=== PATIENT | male | born 1975 | race Hispanic/Latino ===

== ENCOUNTER 2017-10-04 11:28 | Emergency (ER) | payer SELFPAY ==
[~2017-10-04] VITALS: Ht 165.1 cm; Wt 95.3 kg
[2017-10-04 12:01] LABS: BASOPHILS # (AUTO) 0.1 (0.0-0.1); BASOPHILS % 0.6 % (0.0-1.0); EOSINOPHILS # (AUTO) 0.2 (0.0-0.4); HEMATOCRIT 46.1 % (38.2-49.6); HEMOGLOBIN 16.5 g/dL (14.0-18.0); LYMPHOCYTES # (AUTO) 2.7 (1.0-3.2); LYMPHOCYTES % 28.4 % (18.0-39.1); MEAN CORPUSCULAR HEMOGLOBIN 29.4 pg (28-32); MEAN CORPUSCULAR HGB CONC 35.8 g/dL (31-35); MONOCYTES # (AUTO) 0.6 (0.2-0.8); MONOCYTES % 6.3 % (4.4-11.3); NEUTROPHILS # (AUTO) 5.8 (2.1-6.9); NEUTROPHILS % 62.2 % (38.7-80.0); PLATELET COUNT 351 x10e3/uL (140-360); RED BLOOD COUNT 5.62 x10e6/uL (4.3-5.7); RED CELL DISTRIBUTION WIDTH 12.3 % (11.7-14.4)
[2017-10-04] MEDS ORDERED: LABETALOL HCL 5 MG/ML 20ML VIAL IV STA (12:08)
[2017-10-04] MEDS ORDERED: HYDROMORPHONE 1MG/1ML INJ IV STA (12:08)
[2017-10-04] MEDS ORDERED: ONDANSETRON HCL 4 MG ORAL DISINTEGRATING TAB PO ONE ×2 (12:15→13:45)
[2017-10-04 12:20] LABS: INR 0.95; PROTHROMBIN TIME 11.9 seconds (11.9-14.5)
[2017-10-04 12:21] LABS: PARTIAL THROMBOPLASTIN TIME 24.7 seconds (23.8-35.5)
[2017-10-04 12:24] LABS: ALANINE AMINOTRANSFERASE 18 IU/L (0-55); ALBUMIN/GLOBULIN RATIO 0.9 (0.8-2.0); ALKALINE PHOSPHATASE 66 IU/L (40-150); ANION GAP 17.6 mmol/L (8-16); BLOOD UREA NITROGEN 15 mg/dL (7-26); BUN/CREATININE RATIO 13 (6-25); CALCIUM 10.4 mg/dL (8.4-10.2); CARBON DIOXIDE 27 mmol/L (22-29); CHLORIDE 95 mmol/L (98-107); EST GLOMERULAR FILTRATION RATE > 60 ML/MIN (60-); POTASSIUM 3.6 mmol/L (3.5-5.1); SODIUM 136 mmol/L (136-145)
[2017-10-04 12:26] LABS: CREATINE KINASE 55 IU/L (30-200)
[2017-10-04 12:27] LABS: GLUCOSE 430 mg/dL (74-118)
[2017-10-04] MEDS ORDERED: HYDROMORPHONE 2MG/ML INJ IV ONE (12:30)
[2017-10-04] MEDS ORDERED: HYDROMORPHONE 2MG/ML INJ IV NR (12:30)
[2017-10-04 12:50] LABS: CLARITY,URINE CLEAR (CLEAR); COLOR,URINE YELLOW (YELLOW); LEUKOCYTE ESTERASE ,URINE NEGATIVE (NEGATIVE); NITRITE,URINE NEGATIVE (NEGATIVE); PROTEIN,URINE DIPSTICK 1+ (NEGATIVE)
[2017-10-04 12:51] LABS: BACTERIA,URINE RARE /HPF; BILIRUBIN,URINE NEGATIVE (NEGATIVE); EPITHELIAL CELLS,URINE RARE /LPF; KETONES,URINE NEGATIVE (NEGATIVE); RBC,URINE 0-5 /HPF (0-5); URINE UROBILINOGEN 0.2 mg/dL (0.2 - 1); WBC,URINE (MAN) 0-5 /HPF (0-5)
--- NOTE | 2017-10-04 13:08 | Diagnostic Imaging Report ---
PROCEDURE: A single AP view of the chest. COMPARISON: None. INDICATIONS: RIGHT FLANK PAIN RADIATING TO RIGHT SIDE ABDOMEN FINDINGS: Lines/tubes: None. Lungs: Low lung volumes. There is no evidence of pneumonia or pulmonary edema. Pleura: There is no pleural effusion or pneumothorax. Heart and mediastinum: The heart and the mediastinum are unremarkable. Bones: No acute bony abnormality. IMPRESSION: 1. No acute cardiopulmonary disease. Dictated by: Adalberto Crowder M.D. on 10/04/2017 at 13:11 Electronically approved by: Adalberto Crowder M.D. on 10/04/2017 at 13:11
--- NOTE | 2017-10-04 13:54 | Diagnostic Imaging Report ---
EXAM: CTA Abdomen and Pelvis WITH AND WITHOUT CONTRAST. DATE: 10/04/2017 12:10 PM INDICATION: COMPARISON: None TECHNIQUE: CT angiogram of the abdomen and pelvis was obtained before and after the administration of IV contrast. Prospective gating was performed. Images reviewed in the axial, coronal, and sagittal planes. 3D reconstructions performed on off-line workstation. IV Contrast: 100 mL Isovue-370. Total DLP: 1346 mGy*cm Est. Eff. Dose DLP x 0.015 x size factor mSv (CTDIvol has been reviewed and is below limits set by [facility]). FINDINGS: VASCULAR: Abdominal Aorta Mesenteric Segment: 19 mm. Abdominal Aorta Just Below Renal Arteries: 17 mm. Mid Infrarenal Abdominal Aorta: 16 mm. Abdominal Aortal at Bifurcation: 14 mm. Mesenteric Arteries: Widely patent. No significant atherosclerotic changes. Other: No significant atherosclerotic change, mural plaque, or dissection. RCIA: 10 mm. LCIA: 11 mm. Internal Iliac Arteries: Widely patent. Abdomen: Lung Bases: No acute findings. Solid Organs: Liver, adrenals, kidneys, spleen, and pancreas unremarkable. Upper GI Tract: No small bowel obstructive changes. Lymph Nodes: No suspicious adenopathy by size criteria. Other: None. Pelvis: Bladder: Unremarkable. Other: None. Colon: No acute colonic findings. Appendix not inflamed. Bones: Mild degenerative changes. IMPRESSION: 1. No aortic aneurysm or dissection. Signed by: Dr. Paulie Welsh MD on 10/04/2017 1:50 PM
[2017-10-04 13:57] LABS: AMPHETAMINES SCREEN,URINE NEGATIVE (NEGATIVE); BENZODIAZEPINES SCREEN,URINE NEGATIVE (NEGATIVE); PHENCYCLIDINE SCREEN,URINE NEGATIVE (NEGATIVE)
[2017-10-04] MEDS ORDERED: JANUVIA100 MG PO (13:57)
[2017-10-04] MEDS ORDERED: METFORMIN HCL500 MG PO (14:00)
[2017-10-04] MEDS ORDERED: GLYBURIDE5 MG PO (14:00)
[2017-10-04] MEDS ORDERED: LISINOPRIL-HCT1 EAC1 PO (14:00)
[2017-10-04] MEDS ORDERED: SIMVASTATIN40 MG PO (14:00)
[2017-10-04] MEDS ORDERED: INSULIN LISPRO 100 UNIT/1 ML 3ML VIAL SQ STA (14:17)
[2017-10-04] MEDS ORDERED: IOPAMIDOL 370 MG/ML 200 ML INFUS..BTL INJ ONE (15:22)
[2017-10-04] MEDS ORDERED: SODIUM CHLORIDE 0.9% 100 ML ONE (15:22)
[2017-10-04 15:25] VITALS: BP 132/85
== END 2017-10-04 15:45 | disposition home or self-care (01) ==
LOC: ER 11:31
DX: R10.11 Right upper quadrant pain (principal); R10.31 Right lower quadrant pain; I10 Essential (primary) hypertension
CPT/HCPCS: 36415; 71045; 74174; 80053; 80307; 81001; 82550; 82553; 83880; 84484; 85025; 85379; 85610; 85730; 93005; 99284; J1170; J3490; J7050; Q9967

== ENCOUNTER 2019-06-18 08:54 | Emergency (ER) | payer SELFPAY ==
[~2019-06-18] VITALS: Ht 165.1 cm; Wt 95.3 kg
[~2019-06-18 08:54] MED LIST: GLYBURIDE5 MG PO; JANUVIA100 MG PO; LISINOPRIL-HCT1 EAC1 PO; METFORMIN HCL500 MG PO; SIMVASTATIN40 MG PO
--- OUTSIDE RECORDS SUMMARY | 2019-06-18 08:57 | XMS REPORT ---
Author Author [facility] Address Unknown Phone Unavailable Care Team Providers Care Billet Examiner Name Role Phone Perlita COPE Unavailable Unavailable Problems This patient has no known problems. Allergies, Adverse Reactions, Alerts This patient has no known allergies or adverse reactions. Medications This patient has no known medications. Results Test Description Test Time Test Comments Text Results Atomic Results Result Comments CTA ABD/PELVIS [place] [address] Patient Name: KIKI BLUNT MR #: [id number] : 1975 Age/Sex: 41/M Req #: [id number] Adm Physician: Ordered by: LINDSAY COPE MD Report #: [id number] Location: ER Room/Bed: Procedure: [id number] CT/CTA ABD/PELVIS Exam Date: 10/04/17 Exam Time: 1315 REPORT STATUS: Signed EXAM: CTA Abdomen and Pelvis WITH AND WITHOUT CONTRAST. DATE: 10/04/2017 12:10 PM INDICATION: COMPARISON: None TECHNIQUE: CT angiogram of the abdomen and pelvis was obtained before and after the administration of IV contrast. Prospective gating was performed. Images reviewed in the axial, coronal, and sagittal planes. 3D reconstructions performed on off-line workstation. IV Contrast: 100 mL Isovue-370. Total DLP: 1346 mGy*cm Est. Eff. Dose DLP x 0.015 x size factor mSv (CTDIvol has been reviewed and is below limits set by [facility]). FINDINGS: VASCULAR: Abdominal Aorta Mesenteric Segment: 19 mm. Abdominal Aorta Just Below Renal Arteries: 17 mm. Mid Infrarenal Abdominal Aorta: 16 mm. Abdominal Aortal at Bifurcation: 14 mm. Mesenteric Arteries: Widely patent. No significant atherosclerotic changes. Other: No significant atherosclerotic change, mural plaque, or dissection. RCIA: 10 mm. LCIA: 11 mm. Internal Iliac Arteries: Widely patent. Abdomen: Lung Bases: No acute findings. Solid Organs: Liver, adrenals, kidneys, spleen, and pancreas unremarkable. Upper GI Tract: No small bowel obstructive changes. Lymph Nodes: No suspicious adenopathy by size criteria. Other: None. Pelvis: Bladder: Unremarkable. Other: None. Colon: No acute colonic findings. Appendix not inflamed. Bones: Mild degenerative changes. IMPRESSION: 1. No aortic aneurysm or dissection. Signed by: Dr. Paulie Welsh MD on 10/04/2017 1:50 PM Dictated By: PAULIE WELSH MD 1350 Transcribed By: CAMACHO on 10/04/17 1350 COPY TO: LINDSAY COPE MD CHEST SINGLE (PORTABLE) [place] [address] Patient Name: KIKI BLUNT MR #: [id number] : 1975 Age/Sex: 41/M Req #: [id number] Adm Physician: Ordered by: LINDSAY COPE MD Report #: [id number] Location: ER Room/Bed: Procedure: [id number] DX/CHEST SINGLE (PORTABLE) Exam Date: 10/04/17 Exam Time: 1235 REPORT STATUS: Signed PROCEDURE: A single AP view of the chest. COMPARISON: None. INDICATIONS: RIGHT FLANK PAIN RADIATING TO RIGHT SIDE ABDOMEN FINDINGS: Lines/tubes: None. Lungs: Low lung volumes. There is no evidence of pneumonia or pulmonary edema. Pleura: There is no pleural effusion or pneumothorax. Heart and mediastinum: The heart and the mediastinum are unremarkable. Bones: No acute bony abnormality. IMPRESSION: 1. No acute cardiopulmonary disease. Dictated by: Adalberto Stewart M.D. on 10/04/2017 at 13:11 Electronically approved by: Adalberto Stewart M.D. on 10/04/2017 at 13:11 Dictated By: ADALBERTO STEWART MD 1311 Transcribed By: PIETER on 10/04/17 1311 COPY TO: LINDSAY COPE MD
[2019-06-18] MEDS ORDERED: ONDANSETRON HCL INJ 2MG/ML 2ML 2 MG/ML VIAL IV ONE (09:15)
[2019-06-18] MEDS ORDERED: KETOROLAC TROMETHAMINE 30 MG/ML VIAL IV ONE (09:15)
[2019-06-18 09:20] LABS: BASOPHILS # (AUTO) 0.1 (0.0-0.1); BASOPHILS % 0.3 % (0.0-1.0); EOSINOPHILS # (AUTO) 0.2 (0.0-0.4); EOSINOPHILS % 1.2 % (0.0-6.0); HEMATOCRIT 40.7 % (38.2-49.6); HEMOGLOBIN 14.3 g/dL (14.0-18.0); LYMPHOCYTES # (AUTO) 2.6 (1.0-3.2); LYMPHOCYTES % 18.1 % (18.0-39.1); MEAN CORPUSCULAR HEMOGLOBIN 29.3 pg (28-32); MEAN CORPUSCULAR HGB CONC 35.1 g/dL (31-35); MEAN CORPUSCULAR VOLUME 83.4 fL (81-99); MONOCYTES # (AUTO) 1.2 (0.2-0.8); MONOCYTES % 8.1 % (4.4-11.3); NEUTROPHILS # (AUTO) 10.2 (2.1-6.9); NEUTROPHILS % 70.6 % (38.7-80.0); PLATELET COUNT 528 x10e3/uL (140-360); RED BLOOD COUNT 4.88 x10e6/uL (4.3-5.7); RED CELL DISTRIBUTION WIDTH 12.1 % (11.7-14.4)
[2019-06-18] MEDS ORDERED: HYDROCODONE/APAP 5MG-325MG TAB PO ONE (09:30)
--- NOTE | 2019-06-18 09:36 | Diagnostic Imaging Report ---
ANKLE 3 + VIEWS RIGHT - 3 views HISTORY: ^acute pain no trauma ^[id number] ^0900 COMPARISON: None available. FINDINGS: Bones: No acute displaced fracture. Osseous alignment is within normal limits. Joints: The joint spaces are well-maintained. Soft tissues: The soft tissues appear unremarkable. IMPRESSION: No acute radiographic abnormality. Signed by: Zeeshan Park MD on 06/18/2019 9:33 AM
[2019-06-18 09:45] LABS: ALANINE AMINOTRANSFERASE 31 IU/L (0-55); ALBUMIN 3.1 g/dL (3.5-5.0); ALBUMIN/GLOBULIN RATIO 0.7 (0.8-2.0); ANION GAP 17.8 mmol/L (8-16); BLOOD UREA NITROGEN 12 mg/dL (7-26); BUN/CREATININE RATIO 13 (6-25); CALCIUM 9.7 mg/dL (8.4-10.2); CARBON DIOXIDE 27 mmol/L (22-29); CHLORIDE 98 mmol/L (98-107); CREATININE, SERUM 0.96 mg/dL (0.72-1.25); EST GLOMERULAR FILTRATION RATE > 60 ML/MIN (60-); GLUCOSE 252 mg/dL (74-118); POTASSIUM 3.8 mmol/L (3.5-5.1); SODIUM 139 mmol/L (136-145)
[2019-06-18 10:19] LABS: ALKALINE PHOSPHATASE 53 IU/L (40-150)
[2019-06-18] MEDS ORDERED: CLINDAMYCIN PHOS 900MG/ 50ML 50 ML IV ONE (11:00)
[2019-06-18 11:27] VITALS: BP 149/71
== END 2019-06-18 11:45 | disposition home or self-care (01) ==
LOC: ER 08:54
DX: M25.571 Pain in right ankle and joints of right foot (principal); L03.115 Cellulitis of right lower limb; R26.2 Difficulty in walking, not elsewhere classified; I10 Essential (primary) hypertension; E11.9 Type 2 diabetes mellitus without complications; E78.5 Hyperlipidemia, unspecified
CPT/HCPCS: 36415; 73610; 80053; 84550; 85025; 99284; J1885; J2405

== ENCOUNTER 2021-07-23 21:11 | Emergency (ER) | payer OTHER ==
[~2021-07-23] VITALS: Ht 170.2 cm; Wt 95.3 kg
[~2021-07-23 21:11] MED LIST changes: +AMLODIPINE-BEN1 EAC5 PO; +ASPIRIN81 MG; +DOXAZOSIN MESYLA2 MG PO; +DOXAZOSIN MESYLA4 MG; +GLIMEPIRIDE2 MG PO; +LASIX20 MG PO; +LIPITOR10 MG PO; +ZEBETA10 MG PO
[2021-07-23] MEDS ORDERED: HYDRALAZINE HCL 20 MG/ML VIAL IV STA ×2 (21:27→23:02)
[2021-07-23 21:41] LABS: BASOPHILS # (AUTO) 0.1 (0.0-0.1); BASOPHILS % 0.9 % (0.0-1.0); EOSINOPHILS # (AUTO) 0.2 (0.0-0.4); EOSINOPHILS % 2.9 % (0.0-6.0); HEMATOCRIT 39.8 % (38.2-49.6); HEMOGLOBIN 14.1 g/dL (14.0-18.0); LYMPHOCYTES # (AUTO) 3.4 (1.0-3.2); LYMPHOCYTES % 42.1 % (18.0-39.1); MEAN CORPUSCULAR HEMOGLOBIN 29.8 pg (28-32); MEAN CORPUSCULAR HGB CONC 35.4 g/dL (31-35); MEAN CORPUSCULAR VOLUME 84.1 fL (81-99); MONOCYTES # (AUTO) 0.6 (0.2-0.8); MONOCYTES % 7.1 % (4.4-11.3); NEUTROPHILS # (AUTO) 3.7 (2.1-6.9); NEUTROPHILS % 46.7 % (38.7-80.0); PLATELET COUNT 412 x10e3/uL (140-360); RED BLOOD COUNT 4.73 x10e6/uL (4.3-5.7); RED CELL DISTRIBUTION WIDTH 12.2 % (11.7-14.4)
[2021-07-23 21:48] LABS: INR 0.79; PROTHROMBIN TIME 11.7 seconds (11.9-14.5)
[2021-07-23 21:49] LABS: PARTIAL THROMBOPLASTIN TIME 24.4 seconds (23.8-35.5)
[2021-07-23 21:59] LABS: ALBUMIN 2.9 g/dL (3.5-5.0); ALBUMIN/GLOBULIN RATIO 0.7 (0.8-2.0); ANION GAP 12.8 mmol/L (8-16); CALCIUM 9.5 mg/dL (8.4-10.2); CREATININE, SERUM 1.2 mg/dL (0.72-1.25); POTASSIUM 3.8 mmol/L (3.5-5.1)
[2021-07-23 22:05] LABS: CREATINE KINASE MB 5.4 ng/mL (0-5.0)
[2021-07-23] MEDS ORDERED: SODIUM CHLORIDE 0.9% 1000ML 1,000 ML IV STA (22:10)
[2021-07-23] MEDS ORDERED: SODIUM CHLORIDE 0.9% 1000ML 1,000 ML ONE (22:22)
[2021-07-23 23:01] LABS: CLARITY,URINE CLEAR (CLEAR); COLOR,URINE YELLOW (YELLOW); LEUKOCYTE ESTERASE ,URINE NEGATIVE (NEGATIVE)
[2021-07-23 23:02] LABS: KETONES,URINE NEGATIVE (NEGATIVE); NITRITE,URINE NEGATIVE (NEGATIVE); PROTEIN,URINE DIPSTICK >=300 (NEGATIVE); URINE UROBILINOGEN 0.2 mg/dL (0.2 - 1)
[2021-07-23 23:09] LABS: BACTERIA,URINE FEW /HPF; EPITHELIAL CELLS,URINE FEW /LPF; WBC,URINE (MAN) 0-5 /HPF (0-5)
[2021-07-23] MEDS ORDERED: HYDRALAZINE HCL 20 MG/ML VIAL ONE (23:16)
[2021-07-23] MEDS ORDERED: DIOVAN160 MG PO (23:45)
[2021-07-23] MEDS ORDERED: AMLODIPINE BESY10 MG PO (23:45)
[2021-07-23] MEDS ORDERED: HYDROCHLOROTHIA25 MG PO (23:45)
[2021-07-23] MEDS ORDERED: METOPROLOL SUCC50 MG PO (23:45)
[2021-07-23 23:57] VITALS: BP 176/85
== END 2021-07-23 23:59 | disposition home or self-care (01) ==
LOC: MERGE 21:16 → ER 21:16
DX: I10 Essential (primary) hypertension (principal); E11.65 Type 2 diabetes mellitus with hyperglycemia; R51.9 Headache, unspecified; E78.5 Hyperlipidemia, unspecified
CPT/HCPCS: 36415; 70450; 71045; 80053; 81001; 82550; 82553; 83880; 84484; 85025; 85610; 85730; 93005; 99284; J0360; J7030

== ENCOUNTER 2022-09-12 13:18 | Emergency (ER) | payer OTHER ==
[~2022-09-12] VITALS: Ht 170.2 cm; Wt 95.3 kg
[~2022-09-12 13:18] MED LIST changes: +AMLODIPINE BESY10 MG PO; +DIOVAN160 MG PO; +HYDROCHLOROTHIA25 MG PO; +METOPROLOL SUCC50 MG PO
[2022-09-12] MEDS ORDERED: ENALAPRILAT IV INJ 1.25 MG/ML VIAL IV STA ×2 (14:51→16:33)
[2022-09-12] MEDS ORDERED: ENALAPRIL MALEATE 10 MG TAB PO ONE ×2 (15:00→15:30)
[2022-09-12 15:33] LABS: BASOPHILS # (AUTO) 0.1 (0.0-0.1); BASOPHILS % 1.1 % (0.0-1.0); EOSINOPHILS # (AUTO) 0.2 (0.0-0.4); EOSINOPHILS % 2.4 % (0.0-6.0); LYMPHOCYTES # (AUTO) 2.5 (1.0-3.2); LYMPHOCYTES % 35.3 % (18.0-39.1); MEAN CORPUSCULAR HEMOGLOBIN 29.5 pg (28-32); MEAN CORPUSCULAR HGB CONC 35.6 g/dL (31-35); MEAN CORPUSCULAR VOLUME 82.9 fL (81-99); MONOCYTES # (AUTO) 0.5 (0.2-0.8); MONOCYTES % 7.2 % (4.4-11.3); NEUTROPHILS # (AUTO) 3.8 (2.1-6.9); NEUTROPHILS % 53.4 % (38.7-80.0); PLATELET COUNT 537 x10e3/uL (140-360); RED BLOOD COUNT 5.43 x10e6/uL (4.3-5.7); RED CELL DISTRIBUTION WIDTH 12.4 % (11.7-14.4)
[2022-09-12 15:54] LABS: ALANINE AMINOTRANSFERASE 9 IU/L (0-55); ALBUMIN 2.7 g/dL (3.5-5.0); ALBUMIN/GLOBULIN RATIO 0.5 (0.8-2.0); ALKALINE PHOSPHATASE 52 IU/L (40-150); ANION GAP 16.5 mmol/L (8-16); BLOOD UREA NITROGEN 30 mg/dL (7-26); BUN/CREATININE RATIO 19 (6-25); CALCIUM 9.9 mg/dL (8.4-10.2); CARBON DIOXIDE 24 mmol/L (22-29); CHLORIDE 101 mmol/L (98-107); CREATINE KINASE 49 IU/L (30-200); CREATININE, SERUM 1.54 mg/dL (0.72-1.25); GLUCOSE 214 mg/dL (74-118); POTASSIUM 4.5 mmol/L (3.5-5.1); SODIUM 137 mmol/L (136-145)
[2022-09-12] MEDS ORDERED: LACTATED RINGER'S 1,000 ML INJ ONE (16:15)
[2022-09-12 16:38] LABS: CLARITY,URINE CLEAR (CLEAR); COLOR,URINE YELLOW (YELLOW); LEUKOCYTE ESTERASE ,URINE NEGATIVE (NEGATIVE); NITRITE,URINE NEGATIVE (NEGATIVE)
[2022-09-12 16:39] LABS: KETONES,URINE NEGATIVE (NEGATIVE); PROTEIN,URINE DIPSTICK >=300 (NEGATIVE); URINE UROBILINOGEN 0.2 mg/dL (0.2 - 1)
[2022-09-12 16:46] LABS: BACTERIA,URINE MODERATE /HPF
[2022-09-12 16:47] LABS: EPITHELIAL CELLS,URINE FEW /LPF
[2022-09-12] MEDS ORDERED: ASPIRIN 325 MG TAB PO ONE (18:45)
[2022-09-12 19:08] VITALS: BP 160/78
== END 2022-09-12 19:10 | disposition other institution (70) ==
LOC: ER 13:24
DX: I16.9 Hypertensive crisis, unspecified (principal); G46.4 Cerebellar stroke syndrome; R42 Dizziness and giddiness; E11.65 Type 2 diabetes mellitus with hyperglycemia; I10 Essential (primary) hypertension; E78.5 Hyperlipidemia, unspecified; Z20.822 Contact with and (suspected) exposure to COVID-19
CPT/HCPCS: 0223U; 36415; 70496; 70498; 71046; 80053; 81001; 82550; 82553; 84484; 85025; 93005; 99284; J7121

== ENCOUNTER 2024-02-08 07:49 | Emergency (ER) | payer OTHER ==
[~2024-02-08] VITALS: Ht 170.2 cm; Wt 95.3 kg
[2024-02-08 08:10] VITALS: PULSE 92; RESP 19; TEMP 100.7; O2SAT 98
[2024-02-08] MEDS: ACETAMINOPHEN 325 MG TAB PO ONE (08:21)
[2024-02-08] MEDS ORDERED: BENZONATATE100 MG PO (09:24)
== END 2024-02-08 09:50 | disposition home or self-care (01) ==
LOC: ER 07:53
DX: R05.9 Cough, unspecified (principal); U07.1 COVID-19; I10 Essential (primary) hypertension; E11.9 Type 2 diabetes mellitus without complications; E78.5 Hyperlipidemia, unspecified
CPT/HCPCS: 87400; 99283; U0002

== ENCOUNTER 2024-06-29 11:52 | Emergency (ER) | payer OTHER ==
[~2024-06-29] VITALS: Ht 157.5 cm; Wt 99.8 kg
[~2024-06-29 11:52] MED LIST changes: +BENZONATATE100 MG PO
[2024-06-29] MEDS: HYDROCODONE/APAP 7.5MG-325MG 1 EA TAB PO STA (12:20)
[2024-06-29] MEDS ORDERED: ULTRAM 50MG50 MG PO (13:14)
[2024-06-29 13:36] VITALS: PULSE 61; RESP 16; TEMP 98; O2SAT 96
== END 2024-06-29 13:43 | disposition home or self-care (01) ==
LOC: ER 12:14
DX: R07.89 Other chest pain (principal); W18.39XA Other fall on same level, initial encounter; I10 Essential (primary) hypertension; E11.9 Type 2 diabetes mellitus without complications; E78.5 Hyperlipidemia, unspecified; Z86.73 Personal history of transient ischemic attack (TIA), and cerebral infarction without residual deficits
CPT/HCPCS: 71101; 99283

== ENCOUNTER 2024-09-18 22:01 | Emergency (ER) | payer OTHER ==
[~2024-09-18] VITALS: Ht 157.5 cm; Wt 99.8 kg
[~2024-09-18 22:01] MED LIST changes: +ULTRAM 50MG50 MG PO
[2024-09-18 22:24] VITALS: PULSE 70; RESP 18; TEMP 98.7; O2SAT 98
== END 2024-09-18 22:16 | disposition left against medical advice (07) ==
LOC: ER 22:16
DX: R04.0 Epistaxis (principal)